=== PATIENT | male | born 1970 | race Caucasian/White ===

== ENCOUNTER → 2024-01-16 | Outpatient (CLI) | payer OTHER ==
--- NOTE | 2024-01-16 10:35 | XR ---
EXAMINATION TYPE: XR cervical spine comp DATE OF EXAM: 01/16/2024 10:04 AM CLINICAL INDICATION: Male, 53 years old with history of M46.92 INFLAMMATORY SPONDYLOPATHY, CERVICAL R EGION; PHH COMPARISON: None TECHNIQUE: The cervical spine was imaged in frontal, lateral, odontoid and bilateral oblique. FINDINGS: The osseous structures show normal alignment without evidence of an acute fracture. No significant ve rtebral body osteophytes or facet joint arthropathy. The intervertebral disk spaces are preserved. Pe dicles are intact. Soft tissues are within normal limits. The odontoid appears intact. IMPRESSION: 1. No fracture or dislocation. 2. Minimal degenerative disc disease changes of the cervical spine.
== END | disposition home or self-care (01) ==
LOC: RADXRMAIN 09:30
PROVIDERS: ATTEND Family Medicine Addiction Medicine
DX: M46.92 Unspecified inflammatory spondylopathy, cervical region
CPT/HCPCS: 72050

== ENCOUNTER → 2024-01-23 | Outpatient (CLI) | payer OTHER ==
--- NOTE | 2024-01-23 15:32 | XR ---
EXAMINATION TYPE: XR shoulder complete RT DATE OF EXAM: 01/23/2024 3:29 PM CLINICAL INDICATION: Male, 53 years old with history of R59.1 GENERALIZED ENLARGED LYMPH NODES; H COMPARISON: TECHNIQUE: XR shoulder complete RT; examined in AP, internally rotated and scapular Y projections. FINDINGS: No evidence of acute osseous pathology, joint dislocation, or soft tissue swelling. The remaining po rtions of the visualized chest are unremarkable. IMPRESSION: No acute osseous pathology. [facility], Workstation: [email or web address], 01/23/2024 3:30 PM
== END | disposition home or self-care (01) ==
LOC: RADXRMAIN 15:11
PROVIDERS: ATTEND Family Medicine Addiction Medicine
DX: M25.511 Pain in right shoulder (principal)